=== PATIENT | female | born 1975 | race Caucasian/White ===

== ENCOUNTER → 2017-10-11 | Outpatient (CLI) | payer SELFPAY ==
[2017-10-11 17:44] LABS: BASO % 0.8 % (0.0-2.0); EOS % 0.4 % (0-4.0); GRAN % 57.6 % (42.2-75.2); HEMOGLOBIN 10.9 g/dl (12.5-16.0); LYMPH # 1.7 (1.2-3.4); LYMPH % 33.8 % (20.0-51.0); MEAN CELL VOLUME 79 fl (80.0-100.0); MEAN CORPUSCULAR HEMOGLOBIN 25 pg (27.0-31.0); MEAN CORPUSCULAR HGB CONC 31 g/dl (33.0-37.0); MEAN PLATELET VOLUME 9.9 fl (7.4-10.4); MONO # 0.4 (0.1-0.6); MONO % 7.2 % (1.7-9.3); PLATELET COUNT 421 K/mm3 (130-400); RED BLOOD COUNT 4.44 M/mm3 (4.10-5.30); REDCELL DISTRIBUTION WIDTH-CV 17.2 % (11.5-14.5)
[2017-10-11 17:46] LABS: HEMATOCRIT 35.1 % (37.0-47.0)
[2017-10-11 17:50] LABS: ALBUMIN 4.2 gm/dL (3.5-5.0); BILIRUBIN,TOTAL 0.4 mg/dL (0.0-1.0); CALCIUM 9.1 mg/dL (8.4-10.2); CREATININE, serum 0.63 mg/dL (0.52-1.25); POTASSIUM 4.2 mmol/L (3.4-5.0); TOTAL PROTEIN 8.4 gm/dL (6.4-8.2)
[2017-10-11 18:21] LABS: THYROID STIMULATING HORMONE 4.28 uIU/mL (0.465-4.680)
[2017-10-12 01:15] LABS: T3 TOTAL 100 ng/dL (87-178)
== END ==
LOC: ZCOL.LAB 17:38
DX: E53.8 Deficiency of other specified B group vitamins (principal); E03.9 Hypothyroidism, unspecified

== ENCOUNTER 2017-10-14 15:23 | Emergency (ER) | payer SELFPAY ==
[~2017-10-14] VITALS: Ht 157.5 cm; Wt 70.2 kg
[2017-10-14 15:31] VITALS: BP 143/71; PULSE 76; TEMP 98.8
[2017-10-14] MEDS ORDERED: FLAGYL500 MG PO (18:00)
== END 2017-10-14 18:45 | disposition home or self-care (01) ==
LOC: COL.ER 15:23
DX: N89.8 Other specified noninflammatory disorders of vagina (principal)

== ENCOUNTER 2017-11-13 23:40 | Emergency (ER) | payer OTHER ==
[~2017-11-13] VITALS: Ht 157.5 cm; Wt 67.3 kg
[~2017-11-13 23:40] MED LIST: FLAGYL500 MG PO
[2017-11-13 23:43] VITALS: BP 133/77; TEMP 100.1
[2017-11-14 00:53] LABS: BASO % 0.4 % (0.0-2.0); EOS % 0.3 % (0-4.0); GRAN # 6.2 (1.4-6.5); GRAN % 84.3 % (42.2-75.2); LYMPH # 0.7 (1.2-3.4); LYMPH % 9.5 % (20.0-51.0); MEAN CELL VOLUME 79 fl (80.0-100.0); MEAN CORPUSCULAR HGB CONC 31 g/dl (33.0-37.0); MEAN PLATELET VOLUME 9.3 fl (7.4-10.4); MONO # 0.4 (0.1-0.6); MONO % 5.1 % (1.7-9.3); PLATELET COUNT 323 K/mm3 (130-400); RED BLOOD COUNT 3.86 M/mm3 (4.10-5.30); REDCELL DISTRIBUTION WIDTH-CV 16.7 % (11.5-14.5)
[2017-11-14 00:58] LABS: HEMATOCRIT 30.3 % (37.0-47.0); HEMOGLOBIN 9.3 g/dl (12.5-16.0); MEAN CORPUSCULAR HEMOGLOBIN 24 pg (27.0-31.0)
[2017-11-14 01:04] LABS: COLLECTION METHOD CLEAN CATCH
[2017-11-14 01:06] LABS: ALBUMIN 3.9 gm/dL (3.5-5.0); BILIRUBIN,TOTAL 0.2 mg/dL (0.0-1.0); CALCIUM 8.5 mg/dL (8.4-10.2); CREATININE, serum 0.7 mg/dL (0.52-1.25); POTASSIUM 3.5 mmol/L (3.4-5.0); TOTAL PROTEIN 7.2 gm/dL (6.4-8.2)
[2017-11-14 01:09] LABS: PH 5 (5-8); SQUAMOUS EPITHELIAL 0-2 /hpf; URINE APPEARANCE Clear; URINE BACTERIA None Seen /hpf; URINE BILIRUBIN Negative (NEGATIVE); URINE BLOOD 3+ (NEGATIVE); URINE COLOR Yellow; URINE GLUCOSE Negative (NEGATIVE); URINE KETONE Negative (NEGATIVE); URINE LEUKOCYTE ESTERASE Negative (NEGATIVE); URINE NITRATE Negative (NEGATIVE); URINE PROTEIN(semi-quant) Negative (NEGATIVE); URINE RBC 20-50 /hpf; URINE UROBILINOGEN Negative (NEGATIVE)
[2017-11-14] MEDS ORDERED: NATURAL IRON65 MG PO (03:03)
[2017-11-14] MEDS ORDERED: ZOFRAN ODT4 MG PO (03:03)
[2017-11-14] MEDS ORDERED: NORCO 325 MG-51 TAB PO (03:03)
[2017-11-14 03:25] VITALS: PULSE 82
== END 2017-11-14 03:25 | disposition home or self-care (01) ==
LOC: COL.ER 23:40
PROVIDERS: Emergency Medicine; Physician Assistant
DX: R10.30 Lower abdominal pain, unspecified (principal); R11.2 Nausea with vomiting, unspecified; D64.9 Anemia, unspecified; Z90.49 Acquired absence of other specified parts of digestive tract

== ENCOUNTER 2017-11-25 06:56 | Day surgery (SDC) | payer OTHER ==
[~2017-11-25] VITALS: Ht 157.5 cm; Wt 68.1 kg
[~2017-11-25 06:56] MED LIST changes: +NATURAL IRON65 MG PO; +NORCO 325 MG-51 TAB PO; +ZOFRAN ODT4 MG PO
[2017-11-25] MEDS ORDERED: LEVOXYL0.137 MG PO (07:08)
[2017-11-25] MEDS ORDERED: B-12 500 MCG PO (07:09)
[2017-11-25] MEDS ORDERED: VITAMIND3 5000 PO (07:10)
[2017-11-25 07:53] VITALS: BP 110/75; PULSE 82; TEMP 98.4
[2017-11-25 08:40] VITALS: TEMP 98.8
[2017-11-25 15:13] VITALS: BP 113/72; PULSE 80
== END 2017-11-25 11:10 | disposition home or self-care (01) ==
LOC: SDCO 06:56
DX: K29.51 Unspecified chronic gastritis with bleeding (principal); A04.72 Enterocolitis due to Clostridium difficile, not specified as recurrent
CPT/HCPCS: J1200; J2250; J3010; J7030

== ENCOUNTER → 2017-12-07 | Outpatient (CLI) | payer OTHER ==
[~2017-12-07] MED LIST changes: +B-12 500 MCG PO; +LEVOXYL0.137 MG PO; +VITAMIND3 5000 PO
[2017-12-07 16:40] LABS: BASO % 0.6 % (0.0-2.0); EOS # 0.1 (0.0-0.7); EOS % 0.8 % (0-4.0); GRAN # 4.1 (1.4-6.5); GRAN % 64.6 % (42.2-75.2); HEMOGLOBIN 10.4 g/dl (12.5-16.0); LYMPH # 1.8 (1.2-3.4); LYMPH % 28.1 % (20.0-51.0); MEAN CELL VOLUME 77 fl (80.0-100.0); MEAN CORPUSCULAR HEMOGLOBIN 24 pg (27.0-31.0); MEAN CORPUSCULAR HGB CONC 31 g/dl (33.0-37.0); MEAN PLATELET VOLUME 9.7 fl (7.4-10.4); MONO # 0.4 (0.1-0.6); MONO % 5.7 % (1.7-9.3); PLATELET COUNT 340 K/mm3 (130-400); RED BLOOD COUNT 4.38 M/mm3 (4.10-5.30); REDCELL DISTRIBUTION WIDTH-CV 16.6 % (11.5-14.5)
[2017-12-07 16:42] LABS: HEMATOCRIT 33.7 % (37.0-47.0)
[2017-12-07 16:52] LABS: ALBUMIN 4.3 gm/dL (3.5-5.0); BILIRUBIN,TOTAL 0.1 mg/dL (0.0-1.0); CALCIUM 8.4 mg/dL (8.4-10.2); CREATININE, serum 0.67 mg/dL (0.52-1.25); POTASSIUM 3.7 mmol/L (3.4-5.0); TOTAL PROTEIN 8.1 gm/dL (6.4-8.2)
== END ==
LOC: COL.LAB 16:00
PROVIDERS: Physician Assistant
DX: D64.9 Anemia, unspecified (principal); K59.00 Constipation, unspecified; R19.7 Diarrhea, unspecified

== ENCOUNTER 2018-02-08 18:47 | Emergency (ER) | payer OTHER ==
[~2018-02-08] VITALS: Ht 157.5 cm; Wt 68.2 kg
[2018-02-08 18:51] VITALS: TEMP 97.9
[2018-02-08] MEDS ORDERED: MULTI VITAMINS1 TAB PO (19:21)
[2018-02-08 19:28] LABS: BASO % 0.5 % (0.0-2.0); EOS % 0.5 % (0-4.0); GRAN % 54.6 % (42.2-75.2); LYMPH % 36.2 % (20.0-51.0); MEAN CELL VOLUME 77 fl (80.0-100.0); MEAN CORPUSCULAR HGB CONC 30 g/dl (33.0-37.0); MEAN PLATELET VOLUME 9.5 fl (7.4-10.4); MONO # 0.4 (0.1-0.6); PLATELET COUNT 381 K/mm3 (130-400); RED BLOOD COUNT 4.26 M/mm3 (4.10-5.30); REDCELL DISTRIBUTION WIDTH-CV 17.5 % (11.5-14.5)
[2018-02-08 19:31] LABS: HEMATOCRIT 32.9 % (37.0-47.0); HEMOGLOBIN 9.9 g/dl (12.5-16.0); MEAN CORPUSCULAR HEMOGLOBIN 23 pg (27.0-31.0)
[2018-02-08 19:39] LABS: ALBUMIN 4.2 gm/dL (3.5-5.0); BILIRUBIN,TOTAL 0.2 mg/dL (0.0-1.0); CALCIUM 8.6 mg/dL (8.4-10.2); CREATININE, serum 0.65 mg/dL (0.52-1.25); POTASSIUM 3.9 mmol/L (3.4-5.0); TOTAL PROTEIN 7.8 gm/dL (6.4-8.2)
[2018-02-08 19:41] LABS: COLLECTION METHOD CLEAN CATCH
[2018-02-08 19:47] LABS: MUCOUS Present /lpf; PH 5 (5-8); SQUAMOUS EPITHELIAL 0-2 /hpf; URINE APPEARANCE Clear; URINE BACTERIA None Seen /hpf; URINE BILIRUBIN Negative (NEGATIVE); URINE BLOOD Negative (NEGATIVE); URINE COLOR Straw; URINE GLUCOSE Negative (NEGATIVE); URINE KETONE Negative (NEGATIVE); URINE LEUKOCYTE ESTERASE Negative (NEGATIVE); URINE NITRATE Negative (NEGATIVE); URINE PROTEIN(semi-quant) Negative (NEGATIVE); URINE RBC 0-2 /hpf; URINE UROBILINOGEN Negative (NEGATIVE)
[2018-02-08 21:05] VITALS: BP 121/78; PULSE 70
== END 2018-02-08 21:08 | disposition home or self-care (01) ==
LOC: COL.ER 18:47
PROVIDERS: Physician Assistant
DX: S22.31XA Fracture of one rib, right side, initial encounter for closed fracture (principal); X58.XXXA Exposure to other specified factors, initial encounter

== ENCOUNTER 2018-03-18 00:16 | Emergency (ER) | payer OTHER ==
[~2018-03-18] VITALS: Ht 157.5 cm; Wt 68.2 kg
[~2018-03-18 00:16] MED LIST changes: +MULTI VITAMINS1 TAB PO
[2018-03-18 00:22] VITALS: BP 137/77; TEMP 98
[2018-03-18] MEDS ORDERED: OPTIVAR 6 ML 6 M6 ML OP (01:08)
[2018-03-18 01:50] VITALS: PULSE 75
== END 2018-03-18 01:51 | disposition home or self-care (01) ==
LOC: COL.ER 00:16
DX: H10.13 Acute atopic conjunctivitis, bilateral (principal)
CPT/HCPCS: J3301

== ENCOUNTER → 2018-08-01 | Outpatient (CLI) | payer OTHER ==
[~2018-08-01] MED LIST changes: +OPTIVAR 6 ML 6 M6 ML OP
[2018-08-01 16:00] LABS: BASO % 0.8 % (0.0-2.0); EOS # 0.1 (0.0-0.7); EOS % 1.9 % (0-4.0); GRAN # 2.4 (1.4-6.5); GRAN % 50.4 % (42.2-75.2); HEMOGLOBIN 10.4 g/dl (12.5-16.0); LYMPH # 1.9 (1.2-3.4); LYMPH % 38.9 % (20.0-51.0); MEAN CELL VOLUME 76 fl (80.0-100.0); MEAN CORPUSCULAR HEMOGLOBIN 24 pg (27.0-31.0); MEAN CORPUSCULAR HGB CONC 31 g/dl (33.0-37.0); MEAN PLATELET VOLUME 10.1 fl (7.4-10.4); MONO # 0.4 (0.1-0.6); MONO % 7.8 % (1.7-9.3); PLATELET COUNT 365 K/mm3 (130-400); RED BLOOD COUNT 4.37 M/mm3 (4.10-5.30)
[2018-08-01 16:01] LABS: HEMATOCRIT 33.4 % (37.0-47.0)
[2018-08-01 17:48] LABS: THYROID STIMULATING HORMONE 7.36 uIU/mL (0.465-4.680)
[2018-08-01 17:53] LABS: ALBUMIN 4.2 gm/dL (3.5-5.0); BILIRUBIN,TOTAL 0.2 mg/dL (0.0-1.0); CHOLESTEROL RISK RATIO 2.2; CREATININE, serum 0.64 (0.52-1.25); POTASSIUM 4.1 mmol/L (3.4-5.0); TOTAL PROTEIN 7.6 gm/dL (6.4-8.2)
== END ==
LOC: ZCOL.LAB 15:25 → ZLAB.FHCC 15:25
PROVIDERS: Nurse Practitioner Family
DX: E03.9 Hypothyroidism, unspecified (principal); E66.9 Obesity, unspecified

== ENCOUNTER → 2018-10-10 | Outpatient (CLI) | payer OTHER | LOC: MC.RAD 11:00 | DX: Z12.31 Encounter for screening mammogram for malignant neoplasm of breast (principal) ==

== ENCOUNTER 2018-10-22 18:33 | Emergency (ER) | payer SELFPAY ==
[~2018-10-22] VITALS: Ht 157.5 cm; Wt 67.3 kg
[2018-10-22 18:43] VITALS: TEMP 97.9
[2018-10-22] MEDS ORDERED: FLEXERIL 1010 MG/TAB PO (21:25)
[2018-10-22 22:09] VITALS: BP 154/79; PULSE 84
== END 2018-10-22 22:09 | disposition home or self-care (01) ==
LOC: COL.ER 18:33
DX: M25.511 Pain in right shoulder (principal); M62.838 Other muscle spasm; E03.9 Hypothyroidism, unspecified; X50.0XXA Overexertion from strenuous movement or load, initial encounter
CPT/HCPCS: J1885

== ENCOUNTER → 2018-11-01 | Outpatient (CLI) | payer SELFPAY ==
[~2018-11-01] MED LIST changes: +FLEXERIL 1010 MG/TAB PO
== END ==
LOC: COL.RAD 12:57
DX: M54.5 Low back pain (principal)

== ENCOUNTER → 2018-11-14 | Outpatient (CLI) | payer SELFPAY ==
[2018-11-14 14:57] LABS: BASO % 0.8 % (0.0-2.0); EOS # 0.1 (0.0-0.7); EOS % 2.6 % (0-4.0); GRAN # 2.8 (1.4-6.5); GRAN % 53.7 % (42.2-75.2); HEMATOCRIT 41.5 % (37.0-47.0); HEMOGLOBIN 13.4 g/dl (12.5-16.0); LYMPH # 1.8 (1.2-3.4); LYMPH % 34.6 % (20.0-51.0); MEAN CELL VOLUME 86 fl (80.0-100.0); MEAN CORPUSCULAR HEMOGLOBIN 28 pg (27.0-31.0); MEAN CORPUSCULAR HGB CONC 32 g/dl (33.0-37.0); MEAN PLATELET VOLUME 10.1 fl (7.4-10.4); MONO # 0.4 (0.1-0.6); MONO % 7.9 % (1.7-9.3); PLATELET COUNT 294 K/mm3 (130-400); RED BLOOD COUNT 4.81 M/mm3 (4.10-5.30); REDCELL DISTRIBUTION WIDTH-CV 18.6 % (11.5-14.5)
[2018-11-14 15:33] LABS: THYROID STIMULATING HORMONE 5.92 uIU/mL (0.465-4.680)
== END ==
LOC: ZLAB.FHCC 11:16
PROVIDERS: Nurse Practitioner Family
DX: D64.9 Anemia, unspecified (principal); E03.9 Hypothyroidism, unspecified

== ENCOUNTER 2019-03-30 17:36 | Emergency (ER) | payer OTHER ==
[~2019-03-30] VITALS: Ht 157.5 cm; Wt 72.7 kg
[2019-03-30 17:52] VITALS: BP 147/91; TEMP 97.4
[2019-03-30] MEDS ORDERED: SYNTHROID0.175 MG PO (19:10)
[2019-03-30 19:23] VITALS: PULSE 70
== END 2019-03-30 19:23 | disposition home or self-care (01) ==
LOC: COL.ER 17:36
DX: E03.9 Hypothyroidism, unspecified (principal)

== ENCOUNTER 2019-05-02 16:27 | Emergency (ER) | payer SELFPAY ==
[~2019-05-02 16:27] MED LIST changes: +SYNTHROID0.175 MG PO
[2019-05-02 17:08] VITALS: BP 112/81; TEMP 97.6
[2019-05-02 18:52] LABS: BASO % 0.4 % (0.0-2.0); EOS # 0.1 (0.0-0.7); EOS % 1.6 % (0-4.0); GRAN # 2.6 (1.4-6.5); GRAN % 51.6 % (42.2-75.2); HEMATOCRIT 38.9 % (37.0-47.0); HEMOGLOBIN 12.7 g/dl (12.5-16.0); LYMPH # 1.9 (1.2-3.4); LYMPH % 38.8 % (20.0-51.0); MEAN CELL VOLUME 92 fl (80.0-100.0); MEAN CORPUSCULAR HEMOGLOBIN 30 pg (27.0-31.0); MEAN CORPUSCULAR HGB CONC 33 g/dl (33.0-37.0); MEAN PLATELET VOLUME 9.8 fl (7.4-10.4); MONO # 0.4 (0.1-0.6); MONO % 7.4 % (1.7-9.3); PLATELET COUNT 231 K/mm3 (130-400); RED BLOOD COUNT 4.21 M/mm3 (4.10-5.30); REDCELL DISTRIBUTION WIDTH-CV 12.4 % (11.5-14.5)
[2019-05-02 19:04] LABS: ALANINE AMINOTRANSFERASE 36 U/L (9-52); ALBUMIN 4.2 gm/dL (3.5-5.0); ALKALINE PHOSPHATASE 58 U/L (50-136); ANION GAP 8 mmol/L (7-16); AST,SGOT 30 U/L (15-37); BILIRUBIN,TOTAL 0.2 mg/dL (0.0-1.0); BLOOD UREA NITROGEN 13 mg/dL (7-17); C-REACTIVE PROTEIN < 0.5 mg/dL (0.0-0.9); CALCIUM 8.8 mg/dL (8.4-10.2); CARBON DIOXIDE 26 mmol/L (22-30); CHLORIDE 105 mmol/L (98-107); GLUCOSE 91 mg/dL (74-106); LIPASE 155 U/L (23-300); POTASSIUM 3.7 mmol/L (3.4-5.0); SODIUM 140 mmol/L (137-145); TOTAL PROTEIN 7.7 gm/dL (6.4-8.2)
[2019-05-02 19:07] LABS: COLLECTION METHOD CLEAN CATCH
[2019-05-02 19:17] LABS: MUCOUS Present /lpf; PH 6 (5-8); SQUAMOUS EPITHELIAL 0-2 /hpf; URINE APPEARANCE Clear; URINE BACTERIA Rare /hpf; URINE BILIRUBIN Negative (NEGATIVE); URINE BLOOD 1+ (NEGATIVE); URINE COLOR Yellow; URINE GLUCOSE Negative (NEGATIVE); URINE KETONE Negative (NEGATIVE); URINE LEUKOCYTE ESTERASE Negative (NEGATIVE); URINE NITRATE Negative (NEGATIVE); URINE PROTEIN(semi-quant) Negative (NEGATIVE); URINE RBC 0-2 /hpf; URINE UROBILINOGEN Negative (NEGATIVE)
[2019-05-02] MEDS ORDERED: SYNTHROID0.175 MG PO (20:01)
[2019-05-02 20:42] VITALS: PULSE 80
== END 2019-05-02 20:42 | disposition home or self-care (01) ==
LOC: COL.ER 16:27
PROVIDERS: Nurse Practitioner
DX: R10.30 Lower abdominal pain, unspecified (principal); E03.9 Hypothyroidism, unspecified; Z88.5 Allergy status to narcotic agent; Z98.51 Tubal ligation status; Z90.89 Acquired absence of other organs; Z98.890 Other specified postprocedural states
CPT/HCPCS: J2270; J7030

== ENCOUNTER 2019-06-16 02:03 | Emergency (ER) | payer OTHER ==
[~2019-06-16] VITALS: Ht 157.5 cm; Wt 72.7 kg
[2019-06-16 02:15] VITALS: BP 116/65; PULSE 73
== END 2019-06-16 02:33 | disposition home or self-care (01) ==
LOC: COL.ER 02:03
DX: J10.1 Influenza due to other identified influenza virus with other respiratory manifestations (principal)

== ENCOUNTER → 2019-07-05 | Outpatient (CLI) | payer OTHER | LOC: COL.RAD 14:15 | DX: R10.9 Unspecified abdominal pain (principal) ==

== ENCOUNTER → 2019-09-26 | Outpatient (CLI) | payer OTHER ==
[2019-09-27 14:17] LABS: CLOSTRIDIUM DIFF A/B NEG; CLOSTRIDIUM DIFF A/B INTERP No C.diff present
== END ==
LOC: COL.LAB 09:10
PROVIDERS: Student in an Organized Health Care Education/Training Program
DX: K92.1 Melena (principal); R10.9 Unspecified abdominal pain; R14.0 Abdominal distension (gaseous)

== ENCOUNTER → 2019-10-26 | Day surgery (SDC) | payer OTHER ==
[~2019-10-26] VITALS: Ht 157.5 cm; Wt 77.8 kg
[~2019-10-26] MED LIST changes: +LEVOXYL0.2 MG PO
[2019-10-26 10:45] VITALS: BP 137/96; PULSE 93; TEMP 97.8
[2019-10-26 11:50] VITALS: BP 110/75; PULSE 90
--- NOTE | 2019-10-26 11:50 | NUR ---
PT ON CART FROM PROCEDURE ROOM TO BAY 7. PT WALKS FROM CART TO CHAIR IN BAY 7. PT DENIES C/O. VITAL SIGNS STABLE. IN ROOM. CALL LIGHT NEXT TO PT.
[2019-10-26 12:05] VITALS: BP 109/75; PULSE 86
--- NOTE | 2019-10-26 12:05 | NUR ---
PT CONTINUES TO DENY C/O. VITAL SIGNS STABLE. PT EATING A MUFFIN AND DRINKING WATER AND APPLE JUICE. DR CARTER IN ROOM TALKING TO PT AND PT . CALL LIGHT NEXT TO PT.
[2019-10-26 12:20] VITALS: BP 104/77; PULSE 79
--- NOTE | 2019-10-26 12:20 | NUR ---
PT DENIES C/O. VITAL SIGNS STABLE. DISCHARGE INSTRUCTIONS REVIEWED WITH PT AND PT . BOTH VERBALIZES UNDERSTANDING. IV DISCONTINUED. CATHETER INTACT.
--- NOTE | 2019-10-26 12:35 | NUR ---
DISCHARGE INSTRUCTIONS REVIEWED WITH PT AND PT . BOTH VERBALIZES UNDERSTANDING. WHEELCHAIR RIDE TO CAR.
== END ==
LOC: SDCO 10:12
DX: K92.1 Melena (principal); K64.0 First degree hemorrhoids; R19.7 Diarrhea, unspecified; D64.9 Anemia, unspecified; E66.9 Obesity, unspecified; Z85.42 Personal history of malignant neoplasm of other parts of uterus; Z90.710 Acquired absence of both cervix and uterus; Z86.010 Personal history of colon polyps
CPT/HCPCS: J2250; J2405; J3010; J7030

== ENCOUNTER 2019-11-15 11:26 | Emergency (ER) | payer OTHER ==
[~2019-11-15] VITALS: Ht 157.5 cm; Wt 78.2 kg
[2019-11-15 11:28] VITALS: TEMP 97.7
[2019-11-15 12:34] LABS: BASO % 0.7 % (0.0-2.0); EOS # 0.1 (0.0-0.7); EOS % 1.1 % (0-4.0); GRAN # 2.3 (1.4-6.5); GRAN % 51.5 % (42.2-75.2); HEMOGLOBIN 10.7 g/dl (12.5-16.0); LYMPH # 1.7 (1.2-3.4); LYMPH % 37.8 % (20.0-51.0); MEAN CELL VOLUME 80 fl (80.0-100.0); MEAN CORPUSCULAR HEMOGLOBIN 25 pg (27.0-31.0); MEAN CORPUSCULAR HGB CONC 31 g/dl (33.0-37.0); MEAN PLATELET VOLUME 9.5 fl (7.4-10.4); MONO # 0.4 (0.1-0.6); MONO % 8.7 % (1.7-9.3); PLATELET COUNT 313 K/mm3 (130-400); RED BLOOD COUNT 4.29 M/mm3 (4.10-5.30); REDCELL DISTRIBUTION WIDTH-CV 14.7 % (11.5-14.5)
[2019-11-15 12:35] LABS: HEMATOCRIT 34.4 % (37.0-47.0)
[2019-11-15 12:43] LABS: COLLECTION METHOD CLEAN CATCH
[2019-11-15 12:45] LABS: ALBUMIN 4.1 gm/dL (3.5-5.0); BILIRUBIN,TOTAL 0.4 mg/dL (0.0-1.0); CALCIUM 8.7 mg/dL (8.4-10.2); CREATININE, serum 0.59 (0.52-1.25); POTASSIUM 3.9 mmol/L (3.4-5.0); TOTAL PROTEIN 7.6 gm/dL (6.4-8.2)
[2019-11-15 12:49] LABS: STREP SCREEN NEGATIVE
[2019-11-15 12:53] LABS: PH 8 (5-8); SQUAMOUS EPITHELIAL 0-2 /hpf; URINE APPEARANCE Clear; URINE BACTERIA None Seen /hpf; URINE BILIRUBIN Negative (NEGATIVE); URINE BLOOD Negative (NEGATIVE); URINE COLOR Yellow; URINE GLUCOSE Negative (NEGATIVE); URINE KETONE Negative (NEGATIVE); URINE LEUKOCYTE ESTERASE Negative (NEGATIVE); URINE NITRATE Negative (NEGATIVE); URINE PROTEIN(semi-quant) Negative (NEGATIVE); URINE RBC 0-2 /hpf; URINE UROBILINOGEN Negative (NEGATIVE)
[2019-11-15] MEDS ORDERED: ZOFRAN ODT4 MG PO (15:07)
[2019-11-15] MEDS ORDERED: FIORICET 325 MG1 TA1 PO (15:07)
[2019-11-15 15:29] VITALS: BP 128/83; PULSE 74
[2019-11-18] MEDS ORDERED: CEPHALEXIN500 M1 PO (09:58)
== END 2019-11-15 15:40 | disposition home or self-care (01) ==
LOC: COL.ER 11:26
PROVIDERS: Emergency Medicine
DX: J02.8 Acute pharyngitis due to other specified organisms (principal); E03.9 Hypothyroidism, unspecified; Z20.828 Contact with and (suspected) exposure to other viral communicable diseases; Z88.6 Allergy status to analgesic agent; Z98.890 Other specified postprocedural states
CPT/HCPCS: J2270; J2405; J7030

== ENCOUNTER 2020-01-21 12:37 | Emergency (ER) | payer OTHER ==
[~2020-01-21] VITALS: Ht 157.5 cm; Wt 76.4 kg
[~2020-01-21 12:37] MED LIST changes: +CEPHALEXIN500 M1 PO; +FIORICET 325 MG1 TA1 PO
[2020-01-21 12:43] VITALS: BP 130/94; TEMP 97.6
[2020-01-21 14:49] VITALS: PULSE 90
== END 2020-01-21 14:49 | disposition home or self-care (01) ==
LOC: COL.ER 12:37
DX: U07.1 COVID-19 (principal); E03.9 Hypothyroidism, unspecified; Z88.6 Allergy status to analgesic agent; Z79.890 Hormone replacement therapy

== ENCOUNTER 2020-01-26 12:32 | Emergency (ER) | payer OTHER ==
[~2020-01-26] VITALS: Ht 157.5 cm; Wt 75.9 kg
[2020-01-26] MEDS ORDERED: SYNTHROID0.2 MG/TAB PO (12:58)
[2020-01-26 13:56] LABS: BASO % 0.5 % (0.0-2.0); EOS % 0.5 % (0-4.0); GRAN # 2.5 (1.4-6.5); GRAN % 62.3 % (42.2-75.2); LYMPH # 1.2 (1.2-3.4); LYMPH % 30.1 % (20.0-51.0); MEAN CELL VOLUME 77 fl (80.0-100.0); MEAN CORPUSCULAR HGB CONC 31 g/dl (33.0-37.0); MEAN PLATELET VOLUME 9.1 fl (7.4-10.4); MONO # 0.3 (0.1-0.6); MONO % 6.3 % (1.7-9.3); PLATELET COUNT 287 K/mm3 (130-400); RED BLOOD COUNT 4.23 M/mm3 (4.10-5.30)
[2020-01-26 13:57] LABS: HEMATOCRIT 32.4 % (37.0-47.0); HEMOGLOBIN 9.9 g/dl (12.5-16.0); MEAN CORPUSCULAR HEMOGLOBIN 23 pg (27.0-31.0)
[2020-01-26 14:18] LABS: ALANINE AMINOTRANSFERASE 21 U/L (4-34); ALBUMIN 4.2 gm/dL (3.5-5.0); ALKALINE PHOSPHATASE 58 U/L (50-136); ANION GAP 5 mmol/L (7-16); AST,SGOT 40 U/L (15-37); BILIRUBIN,TOTAL 0.3 mg/dL (0.0-1.0); BLOOD UREA NITROGEN 10 mg/dL (7-17); CALCIUM 8.7 mg/dL (8.4-10.2); CARBON DIOXIDE 26 mmol/L (22-30); CHLORIDE 109 mmol/L (98-107); CREATININE, serum 0.63 (0.52-1.25); GLUCOSE 96 mg/dL (74-106); POTASSIUM 3.6 mmol/L (3.4-5.0); SODIUM 140 mmol/L (137-145); TOTAL PROTEIN 7.5 gm/dL (6.4-8.2)
[2020-01-26 14:20] LABS: C-REACTIVE PROTEIN < 0.5 mg/dL (0.0-0.9)
[2020-01-26] MEDS ORDERED: ZITHROMAX 250M250 MG PO ×3 (14:45→15:00)
[2020-01-26] MEDS ORDERED: ZOFRAN ODT4 MG PO ×3 (14:45→15:00)
[2020-01-26] MEDS ORDERED: DAILY MULTIPLE1 T19 PO ×3 (14:47→15:00)
[2020-01-26 15:07] VITALS: BP 125/81; PULSE 69; TEMP 98.5
== END 2020-01-26 15:09 | disposition home or self-care (01) ==
LOC: COL.ER 12:32
PROVIDERS: Physician Assistant
DX: U07.1 COVID-19 (principal); E03.9 Hypothyroidism, unspecified; F17.210 Nicotine dependence, cigarettes, uncomplicated; Z85.42 Personal history of malignant neoplasm of other parts of uterus; Z79.890 Hormone replacement therapy
CPT/HCPCS: J1100; J2405; J7030

== ENCOUNTER 2020-05-21 17:12 | Emergency (ER) | payer OTHER ==
[~2020-05-21] VITALS: Ht 157.5 cm; Wt 68.2 kg
[~2020-05-21 17:12] MED LIST changes: +DAILY MULTIPLE1 T19 PO; +SYNTHROID0.2 MG/TAB PO; +ZITHROMAX 250M250 MG PO
[2020-05-21 17:17] VITALS: BP 133/78; TEMP 97.6
[2020-05-21] MEDS ORDERED: ZADITOR 5 ML5 ML OP (17:27)
[2020-05-21] MEDS ORDERED: IRON TABLETS325 MG PO (17:27)
[2020-05-21] MEDS ORDERED: CEPHALEXIN500 M1 PO (17:43)
[2020-05-21 17:55] VITALS: PULSE 83
== END 2020-05-21 17:55 | disposition home or self-care (01) ==
LOC: COL.ER 17:12
DX: H66.92 Otitis media, unspecified, left ear (principal); E03.9 Hypothyroidism, unspecified; Z88.5 Allergy status to narcotic agent; Z88.6 Allergy status to analgesic agent; Z90.49 Acquired absence of other specified parts of digestive tract; Z85.42 Personal history of malignant neoplasm of other parts of uterus; Z79.890 Hormone replacement therapy

== ENCOUNTER 2020-05-28 17:09 | Emergency (ER) | payer OTHER ==
[~2020-05-28] VITALS: Ht 157.5 cm; Wt 68.2 kg
[~2020-05-28 17:09] MED LIST changes: +IRON TABLETS325 MG PO; +ZADITOR 5 ML5 ML OP
[2020-05-28 17:28] VITALS: TEMP 97.7
[2020-05-28 19:45] VITALS: BP 128/79; PULSE 75
== END 2020-05-28 19:45 | disposition home or self-care (01) ==
LOC: COL.ER 17:09
DX: S61.240A Puncture wound with foreign body of right index finger without damage to nail, initial encounter (principal); E03.9 Hypothyroidism, unspecified; Z88.6 Allergy status to analgesic agent; Z79.890 Hormone replacement therapy

== ENCOUNTER 2020-08-09 13:25 | Emergency (ER) | payer OTHER ==
[~2020-08-09] VITALS: Ht 157.5 cm; Wt 68.2 kg
[2020-08-09 13:40] VITALS: TEMP 98.6
[2020-08-09 14:10] LABS: BASO % 0.2 % (0.0-2.0); EOS % 0.7 % (0-4.0); GRAN # 2.3 (1.4-6.5); GRAN % 50.5 % (42.2-75.2); HEMATOCRIT 38.7 % (37.0-47.0); HEMOGLOBIN 12.3 g/dl (12.5-16.0); LYMPH # 1.9 (1.2-3.4); LYMPH % 42.5 % (20.0-51.0); MEAN CELL VOLUME 91 fl (80.0-100.0); MEAN CORPUSCULAR HEMOGLOBIN 29 pg (27.0-31.0); MEAN CORPUSCULAR HGB CONC 32 g/dl (33.0-37.0); MEAN PLATELET VOLUME 9.8 fl (7.4-10.4); MONO # 0.3 (0.1-0.6); MONO % 5.9 % (1.7-9.3); PLATELET COUNT 277 K/mm3 (130-400); RED BLOOD COUNT 4.25 M/mm3 (4.10-5.30); REDCELL DISTRIBUTION WIDTH-CV 14.4 % (11.5-14.5)
[2020-08-09 14:26] LABS: ALANINE AMINOTRANSFERASE 20 U/L (4-34); ALBUMIN 4.3 gm/dL (3.5-5.0); ALKALINE PHOSPHATASE 49 U/L (50-136); ANION GAP 7 mmol/L (7-16); AST,SGOT 28 U/L (15-37); BILIRUBIN,TOTAL < 0.1 mg/dL (0.0-1.0); BLOOD UREA NITROGEN 12 mg/dL (7-17); CALCIUM 8.9 mg/dL (8.4-10.2); CARBON DIOXIDE 27 mmol/L (22-30); CHLORIDE 104 mmol/L (98-107); CREATININE, serum 0.57 (0.52-1.25); GLUCOSE 91 mg/dL (74-106); POTASSIUM 3.6 mmol/L (3.4-5.0); SODIUM 138 mmol/L (137-145); TOTAL PROTEIN 8.2 gm/dL (6.4-8.2)
[2020-08-09 14:35] LABS: TROPONIN-I < 0.012 ng/mL (0.000-0.035)
[2020-08-09] MEDS ORDERED: ATARAX 25MG25 MG/TAB PO (14:57)
[2020-08-09 15:10] VITALS: BP 121/95; PULSE 76
== END 2020-08-09 15:10 | disposition home or self-care (01) ==
LOC: COL.ER 13:25
PROVIDERS: Nurse Practitioner Primary Care
DX: R06.02 Shortness of breath (principal); R11.2 Nausea with vomiting, unspecified; T50.Z95A Adverse effect of other vaccines and biological substances, initial encounter; E03.9 Hypothyroidism, unspecified; Z91.040 Latex allergy status; Z88.5 Allergy status to narcotic agent; Z79.890 Hormone replacement therapy; Z85.828 Personal history of other malignant neoplasm of skin

== ENCOUNTER 2020-09-30 16:42 | Emergency (ER) | payer OTHER ==
[~2020-09-30] VITALS: Ht 157.5 cm; Wt 68.2 kg
[~2020-09-30 16:42] MED LIST changes: +ATARAX 25MG25 MG/TAB PO
[2020-09-30 17:13] VITALS: BP 122/76; TEMP 99.6
[2020-09-30] MEDS ORDERED: AMOXICILLIN 8751 TAB PO (20:10)
[2020-09-30 20:31] VITALS: PULSE 88
== END 2020-09-30 20:32 | disposition home or self-care (01) ==
LOC: COL.ER 16:42
DX: S61.452A Open bite of left hand, initial encounter (principal); S61.451A Open bite of right hand, initial encounter; Z23 Encounter for immunization; W54.0XXA Bitten by dog, initial encounter; Y93.89 Activity, other specified

== ENCOUNTER → 2020-12-12 | Outpatient (CLI) | payer OTHER ==
[~2020-12-12] MED LIST changes: +AMOXICILLIN 8751 TAB PO
== END ==
LOC: COL.RAD 12-11 12:00
DX: R10.30 Lower abdominal pain, unspecified (principal); Z98.51 Tubal ligation status; Z32.01 Encounter for pregnancy test, result positive

== ENCOUNTER 2020-12-16 17:51 | Emergency (ER) | payer OTHER ==
[~2020-12-16] VITALS: Ht 157.5 cm; Wt 70.5 kg
[2020-12-16 18:16] VITALS: TEMP 98.9
[2020-12-16 18:32] LABS: COLLECTION METHOD CLEAN CATCH
[2020-12-16 18:40] LABS: PH 7 (5-8); SQUAMOUS EPITHELIAL 0-2 /hpf; URINE APPEARANCE Hazy; URINE BACTERIA Rare /hpf; URINE BILIRUBIN Negative (NEGATIVE); URINE BLOOD 3+ (NEGATIVE); URINE COLOR Yellow; URINE GLUCOSE Negative (NEGATIVE); URINE KETONE Negative (NEGATIVE); URINE LEUKOCYTE ESTERASE Negative (NEGATIVE); URINE NITRATE Negative (NEGATIVE); URINE PROTEIN(semi-quant) Negative (NEGATIVE); URINE RBC >50 /hpf; URINE UROBILINOGEN Negative (NEGATIVE)
[2020-12-16 19:15] LABS: BASO % 0.2 % (0.0-2.0); EOS % 0.8 % (0-4.0); GRAN # 2.7 (1.4-6.5); GRAN % 54.3 % (42.2-75.2); HEMOGLOBIN 11.5 g/dl (12.5-16.0); LYMPH # 1.8 (1.2-3.4); LYMPH % 36.5 % (20.0-51.0); MEAN CELL VOLUME 91 fl (80.0-100.0); MEAN CORPUSCULAR HEMOGLOBIN 30 pg (27.0-31.0); MEAN CORPUSCULAR HGB CONC 33 g/dl (33.0-37.0); MEAN PLATELET VOLUME 9.7 fl (7.4-10.4); MONO # 0.4 (0.1-0.6); MONO % 7.8 % (1.7-9.3); PLATELET COUNT 258 K/mm3 (130-400); RED BLOOD COUNT 3.83 M/mm3 (4.10-5.30); REDCELL DISTRIBUTION WIDTH-CV 14.2 % (11.5-14.5)
[2020-12-16 19:31] LABS: ALANINE AMINOTRANSFERASE 18 U/L (4-34); ALBUMIN 3.7 gm/dL (3.5-5.0); ALKALINE PHOSPHATASE 43 U/L (50-136); ANION GAP 6 mmol/L (7-16); AST,SGOT 22 U/L (15-37); BILIRUBIN,TOTAL < 0.1 mg/dL (0.0-1.0); BLOOD UREA NITROGEN 13 mg/dL (7-17); CALCIUM 8.4 mg/dL (8.4-10.2); CARBON DIOXIDE 25 mmol/L (22-30); CHLORIDE 105 mmol/L (98-107); CREATININE, serum 0.69 (0.52-1.25); GLUCOSE 95 mg/dL (74-106); POTASSIUM 3.6 mmol/L (3.4-5.0); SODIUM 135 mmol/L (137-145); TOTAL PROTEIN 6.9 gm/dL (6.4-8.2)
[2020-12-16 19:47] LABS: HCG,QUANTITATIVE 254 mIU/mL (0-5)
[2020-12-16 21:50] VITALS: BP 108/55; PULSE 78
== END 2020-12-16 21:50 | disposition home or self-care (01) ==
LOC: COL.ER 17:51
PROVIDERS: Nurse Practitioner Primary Care
DX: O20.0 Threatened abortion (principal); E03.9 Hypothyroidism, unspecified; Z3A.01 Less than 8 weeks gestation of pregnancy; Z79.890 Hormone replacement therapy

== ENCOUNTER 2021-01-29 01:01 | Emergency (ER) | payer OTHER ==
[~2021-01-29] VITALS: Ht 157.5 cm; Wt 70.5 kg
[2021-01-29] MEDS ORDERED: ZOFRAN ODT4 MG PO (02:40)
[2021-01-29 03:07] VITALS: BP 135/78; PULSE 68; TEMP 98.2
== END 2021-01-29 03:07 | disposition home or self-care (01) ==
LOC: COL.ER 01:01
DX: R03.0 Elevated blood-pressure reading, without diagnosis of hypertension (principal); R51.9 Headache, unspecified; G43.909 Migraine, unspecified, not intractable, without status migrainosus; F41.9 Anxiety disorder, unspecified; E03.9 Hypothyroidism, unspecified; Z88.6 Allergy status to analgesic agent; Z79.890 Hormone replacement therapy; Z79.899 Other long term (current) drug therapy
CPT/HCPCS: J0780

== ENCOUNTER 2021-08-22 20:10 | Emergency (ER) | payer OTHER ==
[~2021-08-22] VITALS: Ht 160 cm; Wt 63.6 kg
[2021-08-22 20:11] VITALS: BP 126/73; TEMP 98.2
[2021-08-22] MEDS ORDERED: FLEXERIL 1010 MG/TAB PO ×3 (21:09→21:21)
[2021-08-22 21:25] VITALS: PULSE 80
== END 2021-08-22 21:25 | disposition home or self-care (01) ==
LOC: COL.ER 20:10
DX: M54.50 Low back pain, unspecified (principal); G89.29 Other chronic pain; Z87.39 Personal history of other diseases of the musculoskeletal system and connective tissue; Z91.040 Latex allergy status

== ENCOUNTER 2022-01-08 19:09 | Emergency (ER) | payer OTHER ==
[~2022-01-08] VITALS: Ht 157.5 cm; Wt 70.5 kg
[2022-01-08 19:17] VITALS: BP 139/89; TEMP 98.8
[2022-01-08 19:59] LABS: BASO % 0.4 % (0.0-2.0); EOS % 0.8 % (0.0-4.0); GRAN # 2.6 K/mm3 (1.4-6.5); GRAN % 49.2 % (42.2-75.2); HEMATOCRIT 37.5 % (37.0-47.0); HEMOGLOBIN 12.9 g/dl (12.5-16.0); LYMPH # 2.2 K/mm3 (1.2-3.4); LYMPH % 41.7 % (20.0-51.0); MEAN CELL VOLUME 90 fl (80.0-100.0); MEAN CORPUSCULAR HEMOGLOBIN 31 pg (27-31); MEAN CORPUSCULAR HGB CONC 34 g/dl (33.0-37.0); MEAN PLATELET VOLUME 9.4 fl (7.4-10.4); MONO # 0.4 K/mm3 (0.1-0.6); MONO % 7.7 % (1.7-9.3); PLATELET COUNT 313 K/mm3 (130-400); RED BLOOD COUNT 4.16 M/mm3 (4.10-5.30); REDCELL DISTRIBUTION WIDTH-CV 13.2 % (11.5-14.5)
[2022-01-08 20:06] LABS: PARTIAL THROMBOPLASTIN TIME 33.9 SECONDS (26.0-37.0)
[2022-01-08 20:56] VITALS: PULSE 70
== END 2022-01-08 20:58 | disposition home or self-care (01) ==
LOC: COL.ER 19:09
PROVIDERS: Emergency Medicine
DX: S81.031A Puncture wound without foreign body, right knee, initial encounter (principal); Z91.040 Latex allergy status; W59.11XA Bitten by nonvenomous snake, initial encounter; Y92.096 Garden or yard of other non-institutional residence as the place of occurrence of the external cause